=== PATIENT | female | born 1965 | race Caucasian/White ===

== ENCOUNTER 2021-02-24 13:00 | Day surgery (SDC) | payer OTHER ==
[~2021-02-24] VITALS: Ht 175.3 cm; Wt 59.0 kg
[~2021-02-24 13:00] MED LIST: ESTRADIOL1 MG PO; IBUPROFEN400 MG PO
--- NOTE | 2021-02-24 15:02 | NUR ---
02/24/21 1502 Melissa Knight 1445 PT ARRIVED IN PACU SLEEPY WITH NO C/O'S. ABD SOFT. 1500 SITTING UP IN BED SIPPING ON WATER.
--- NOTE | 2021-03-01 10:51 | OR ---
[facility] [address], [place] [address] Signed DATE OF OPERATION: 02/24/2021 SURGEON: Salina Rose MD PREOPERATIVE DIAGNOSIS: Colon surveillance. POSTOPERATIVE DIAGNOSIS: Normal colon to cecum. PROCEDURE: Total colonoscopy to cecum. ANESTHESIA: Intravenous sedation; fentanyl 150 mcg, Versed 6 mg. INDICATION: This 55-year-old white woman is a patient Dr. Toan Lin and here for colon surveillance. She has no symptoms of bleeding diarrhea or constipation. She has no family history of colon cancer. She underwent colonoscopy by mt in 2010, which was normal. She is admitted to undergo colonoscopy at this time. She understands the risks of bleeding, infection, and perforation. FINDINGS: The prep was excellent. Complete colonoscopy was undertaken to the cecum without question. There was no sign of polyps, diverticular formation, colitis, or cancer. DESCRIPTION OF PROCEDURE: The patient was brought to the endoscopy suite and placed in lateral decubitus position, given intravenous sedation to the point of slurred speech and nystagmus. Digital rectal examination was normal. An Olympus video colonoscope was passed in the rectum and manipulated throughout the colon ultimately intubating the cecum itself. The ileocecal valve was normal as was the appendiceal orifice. The scope was withdrawn from that point and examination throughout showed no sign of abnormality specifically no polyps, diverticular formation, colitis, or cancer. Retroflex view was normal as well. The scope was removed and the patient was taken to the recovery room in good condition. CONCLUDING DIAGNOSIS: Electronically Signed By: SALINA ROSE MD 03/01/21 1051 PATIENT NAME: YONG BRADFORD OPERATIVE REPORT DATE OF : 65 REPORT #: [id number] PHYSICIAN: SALINA ROSE MD PCP: ARCELIA VALENTINE REPORT IS CONFIDENTIAL AND NOT TO BE RELEASED WITHOUT AUTHORIZATION [facility] [address], [place] [address] Signed Normal colon to cecum. PLAN: Recommend repeat colonoscopy in 10 years sooner if clinically indicated. She will return to the ongoing care of Dr. Lin. MD KEYSHA Brambila/MODL /[id number] cc: Toan Lin MD Copies: TOAN LIN MD ~ Electronically Signed By: SALINA ROSE MD 03/01/21 1051 PATIENT NAME: YONG BRADFORD OPERATIVE REPORT DATE OF : 65 REPORT #: [id number] PHYSICIAN: SALINA ROSE MD PCP: ARCELIA VALENTINE REPORT IS CONFIDENTIAL AND NOT TO BE RELEASED WITHOUT AUTHORIZATION
== END 2021-02-24 15:17 | disposition home or self-care (01) ==
LOC: OPS 13:00 → DS 13:05 → OPS 14:00 → DS 14:00 → OPS 15:17
PROVIDERS: ATTEND Surgery
PROC: 0DJD8ZZ Inspection of Lower Intestinal Tract, Via Natural or Artificial Opening Endoscopic (ICD-10-PCS; principal; 2021-02-24 14:00)
DX: Z12.11 Encounter for screening for malignant neoplasm of colon (principal); Z90.711 Acquired absence of uterus with remaining cervical stump; Z98.1 Arthrodesis status
CPT/HCPCS: 99153; G0500; J2250; J3010